=== PATIENT | female | born 1980 | race African-American/Black ===

== ENCOUNTER 2022-09-19 16:49 | Emergency (ER) | payer OTHER ==
[2022-09-19 17:24] VITALS: RESP 18; BMI 31.1
[2022-09-20 00:55] LABS: INR 1.15 (0.83-1.09); PROTHROMBIN TIME (PATIENT) 13.2 SEC (9.7-13.0)
[2022-09-20 00:58] LABS: ACTIVATED PTT 26.8 SECONDS (25.2-36.5)
[2022-09-20 01:02] LABS: CALCIUM 9.2 mg/dL (8.5-10.1)
[2022-09-20 01:03] LABS: ALBUMIN 3.8 g/dl (3.4-5.0); BLOOD UREA NITROGEN 12.8 mg/dL (7-18)
[2022-09-20 01:05] VITALS: BP 105/63; PULSE 72; TEMP 98.3
[2022-09-20 01:06] LABS: CREATININE 0.8 mg/dL (0.55-1.3)
[2022-09-20 01:07] LABS: BILIRUBIN,TOTAL 0.4 mg/dL (0.2-1)
[2022-09-20 01:53] LABS: BASO % 0.8 % (0-2.0); EOS % 0.3 % (0-4.5); HEMATOCRIT 34.3 % (32.4-45.2); HEMOGLOBIN 10.3 GM/dL (10.7-15.3); LYMPH % 26.9 % (8-40); MCHC 30.1 g/dl (32.0-36.0); MEAN CELL VOLUME 65.6 fl (80-96); PLATELET COUNT 419 10^3/uL (134-434); RBC 5.22 M/mm3 (3.60-5.2); RDW 20.4 % (11.6-15.6); WHITE BLOOD COUNT 8.6 K/mm3 (4.0-10.0)
[2022-09-20 01:55] LABS: MCH 19.7 pg (25.7-33.7)
[2022-09-20 02:47] LABS: OVALOCYTE 1+; TARGET CELLS 1+; TEAR DROP CELLS 1+
[2022-09-20 02:48] LABS: PLATELET ESTIMATE ADEQUATE
== END 2022-09-20 03:59 | disposition home or self-care (01) ==
LOC: JER 16:49
DX: R42 Dizziness and giddiness (principal)
CPT/HCPCS: 0241U-QW; 36415; 71045-TC-FY; 80053; 84484; 84703; 85025; 85610; 85730; 93005; 93010; 99285-25